=== PATIENT | male | born 1995 | race Asian ===

== ENCOUNTER 2017-03-23 16:27 | Emergency (ER) | payer SELFPAY ==
[2017-03-23 16:34] VITALS: BP 109/63; PULSE 75; RESP 16; TEMP 97.9; O2SAT 96
--- NOTE | 2017-03-23 17:57 | EDPHY ---
H & P Time Seen by Provider: 03/23/17 17:18 HPI/ROS: CHIEF COMPLAINT: Cat scratch right arm HISTORY OF PRESENT ILLNESS: 21-year-old male presents to the emergency department concerned about cat scratch to his right arm and right 5th finger. The incident happened 2 days ago. This was his own cat which is an indoor cat. He is up-to-date on his tetanus shot. He has no other complaints. ROS: Denies numbness or tingling in his fingers, retained foreign body, pain in his right axilla, lymphangitis. Past Medical/Surgical History: Negative Social History: [employer] student from [place] Smoking Status: Never smoked Physical Exam: On examination the patient has very superficial abrasions noted to the volar aspect of the right mid forearm. No redness or signs of infection. No lymphangitis. No palpable right axillary lymphadenopathy. There is also a more superficial abrasion noted to the dorsal aspect of the right 5th digit overlying D IP joint. Very mild redness associated with this. Nontender to palpate. Full range of motion of his fingers. The other fingers do not appear injured. Full range of motion of the right upper extremity. Constitutional: Initial Vital Signs Temperature (C) 36.6 C 03/23/17 16:31 Heart Rate 75 03/23/17 16:31 Respiratory Rate 16 03/23/17 16:31 Blood Pressure 109/63 03/23/17 16:31 O2 Sat (%) 96 03/23/17 16:31 O2 Delivery Mode Room Air Allergies/Adverse Reactions: No Known Allergies Allergy (Unverified 03/23/17 16:31) Home Medications: Medication Instructions Recorded Amoxicillin/Clavulanate Pot 875 mg PO BID #10 tab 03/23/17 [Augmentin 875 mg tab] MDM/Departure - MDM ED Course/Re-evaluation: 21-year-old male presents with cat scratch to the right upper extremity. Patient may have some very early signs of cellulitis especially to the right 5th finger. He will be started on Augmentin. I do not think IV antibiotics are indicated. The patient tells me that this is not from a bite but rather a cat scratch. He will return if he develops fever, lymphangitis or any other concerns. - Depart Disposition: Home, Routine, Self-Care Clinical Impression: Cat scratch of right forearm Qualifiers: Encounter type: initial encounter Qualified Code(s): S50.811A - Abrasion of right forearm, initial encounter Cat scratch of right hand Qualifiers: Encounter type: initial encounter Qualified Code(s): S60.511A - Abrasion of right hand, initial encounter Condition: Good Instructions: Amoxicillin/Clavulanate Potassium (By mouth), Animal Bite (ED), Acute Wounds (ED) Additional Instructions: Augmentin twice daily for 5 days to prevent infection. Return to the emergency department if you developed fever, pain, redness, red streaking up your arm, pain in her right armpit, or if you feel worse in any way. Prescriptions: Amoxicillin/Clavulanate Pot [Augmentin 875 mg tab] 875 mg PO BID #10 tab Referrals: Ricardo Groves DO [Doctor of Osteopathy] - 2-3 days, if not improved (Primary care provider occupational therapy program director)
== END 2017-03-23 18:03 | disposition home or self-care (01) ==
DX: S50.811A Abrasion of right forearm, initial encounter (principal); S60.511A Abrasion of right hand, initial encounter; W55.03XA Scratched by cat, initial encounter

== ENCOUNTER 2017-04-05 19:12 | Emergency (ER) | payer OTHER ==
[2017-04-05 19:16] VITALS: BP 117/66; PULSE 84; RESP 16; TEMP 98.1; O2SAT 97
--- NOTE | 2017-04-05 19:46 | EDPHY ---
H & P Stated Complaint: Cat scratch on right hand Time Seen by Provider: 04/05/17 19:23 HPI/ROS: Chief Complaint: Deep cat scratch right hand HPI: The patient presents to the ED with a deep cat scratch to the dorsum of his right hand. There is no evidence of an obvious bite or puncture. There is no evidence of any flexor tendon involvement. The patient has no additional acute complaints. REVIEW OF SYSTEMS: Neuro: no headache, numbness, weakness Musculoskeletal: as above Skin: As above Source: Patient - Personal History Current Tetanus/Diphtheria Vaccine: Yes Current Tetanus Diphtheria and Acellular Pertussis (TDAP): Yes - Medical/Surgical History Hx Asthma: No Hx Chronic Respiratory Disease: No Hx Diabetes: No Hx Cardiac Disease: No Hx Renal Disease: No Hx Cirrhosis: No Hx Alcoholism: No Hx HIV/AIDS: No Hx Splenectomy or Spleen Trauma: No Other PMH: denies - Social History Smoking Status: Never smoked - Physical Exam Exam: General: No acute distress Right hand: Deep scratches noted to the dorsal aspect of the right hand, no joint or flexor tendon surface involvement, no significant cellulitis, no obvious puncture Constitutional: Initial Vital Signs Temperature (C) 36.7 C 04/05/17 19:14 Heart Rate 84 04/05/17 19:14 Respiratory Rate 16 04/05/17 19:14 Blood Pressure 117/66 04/05/17 19:14 O2 Sat (%) 97 04/05/17 19:14 Allergies/Adverse Reactions: No Known Allergies Allergy (Unverified 04/05/17 19:13) Home Medications: Medication Instructions Recorded Amoxicillin/Clavulanate Pot 875 mg PO BID #14 tab 04/05/17 [Augmentin 875 mg tablet] Medical Decision Making ED Course/Re-evaluation: The patient will be started on Augmentin prophylactically for the next 7 days. He is given customary aftercare and return precautions. Departure - Departure Disposition: Home, Routine, Self-Care Clinical Impression: Cat scratch Condition: Good Instructions: Abrasion (ED) Additional Instructions: 1. Please take antibiotics as directed for next 7 days. 2. Return to the ED for any increasing pain, redness, swelling or fever. Referrals: NONE *PRIMARY CARE P,. [Primary Care Provider] - As per Instructions
== END 2017-04-05 19:51 | disposition home or self-care (01) ==
DX: S60.511A Abrasion of right hand, initial encounter (principal); W55.03XA Scratched by cat, initial encounter